=== PATIENT | female | born 1970 | race Hispanic/Latino ===

== ENCOUNTER 2016-10-03 16:58 | Emergency (ER) | payer OTHER ==
[~2016-10-03] VITALS: Ht 162.6 cm; Wt 75.3 kg
[~2016-10-03 16:58] MED LIST: BLM PO; CYCLOBENZAPRINE10 M1 PO; IBUPROFEN800 M1 PO; MEDROL DOSEPAK1 PAC PO; MOBIC15 M1 PO; PERCOCET 325 MG1 TA2 PO; PREDNISONE10 MG PO; TAMIFLU 75MG75 MG PO; TESSALON PERLE100 MG PO; TORADOL10 MG PO; ULTRAM50 M1 PO; ZOFRAN4 M1 SL
--- NOTE | 2016-10-03 17:22 | ED SKIN/ALLERGY COMPLAINT ---
History of Present Illness General Chief Complaint: Allergy Symptoms Stated Complaint: BIBA ALLERGIC REACTION Source: patient, old records, EMS Exam Limitations: no limitations Vital Signs & Intake/Output Vital Signs & Intake/Output Vital Signs Date Time Temp Pulse Resp B/P Pulse O2 O2 Flow FiO2 Ox Delivery Rate 10/03 1849 97.3 87 18 142/71 97 Room Air 10/03 1704 97.9 107 20 185/96 99 Nasal 2.0L Cannula Allergies Coded Allergies: oxycodone (From OXYCONTIN) (Severe, ITCHING 05/20/16) shrimp (Severe, HIVES AND RASHES, SOB 10/03/16) morphine (Intermediate, Hives 12/19/15) Reconcile Medications Epinephrine (Epipen 2-Dipak) 0.3 MG/0.3 ML AUTO.INJCT 1 UBALDO SC ONCE PRN ANAPHYLAXIS Methylprednisolone. (Medrol) 4 MG TAB.DS.PK 1 DP PO AD ALLERGIC REACTION 6 on day 1 then reduce by one tablet daily until gone Triage Nurses Notes Reviewed? yes Onset: Abrupt Duration: hour(s): (1), constant Timing: recent history Severity: moderate Severity Numbers: 7 Location: generalized Possible Factors: shrimp exposure No Modifying Factors: none HPI: 45-year-old female presents to emergency room after developing generalized pruritus rash, and feeling as though her throat was closing after eating shrimp around 4:30 this afternoon. The patient was administered epinephrine Benadryl and Zofran in route. She states her nausea has resolved. She denies any difficulty breathing chest tightness abdominal pain diarrhea. No history of anaphylaxis in the past however she states that she has had reactions to shrimp in the past however that was several years ago. There are no modifying factors or associated symptoms otherwise (JOVITA SINGH) Past History Travel History Traveled to [place] past 21 day No Medical History Any Pertinent Medical History? 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 No (JOVITA SINGH) Review of Systems Review of Systems Constitutional: Reports: see HPI. All Other Systems: Reviewed and Negative Comments Review of systems: See HPI, All other systems negative. Constitutional, no chills no fever, no malaise HEENT:no sore throat no congestion, Cardiovascular: No chest pain , no palpitation , Skin, no rashes, no change in skin Respiratory: No dyspnea no cough no sputum GI: No nausea no vomiting, no diarrhea, no bloating/constipation : No dysuria Muscle skeletal: No joint pain, no joint swelling, no back pain, no neck pain, Neurologic: No numbness no headache Psych: No stress . Heme/endocrine: No bruising no bleeding Immunology: No lymphadenopathy, (JOVITA SINGH) Physical Exam Physical Exam General Appearance: well developed/nourished, no apparent distress, alert, awake , anxious Comments: Well-developed well-nourished person in no acute distress Head/Face: Atraumatic, no maxillary/frontal sinus tenderness, no facial swelling Eyes: PERRL, EOMI, no conjunctival injection Ear:External auditory canals clear Nose: atraumatic.Normal inspection Throat: Moist mucous membranes.Pharynx normal. No pharyngeal erythema/exudate seen. No stridor/drooling or assymetry. No swelling or edema. Neck: Supple, no lymphadenopathy, FROM Back: Nontender, no CVA tenderness. Full range of motion Cardiovascular: Regular rate and rhythms no murmurs Respiratory: No respiratory distress. Patient speaking in full complete sentences. Breath sounds clear to auscultation bilaterally: NO W/R/R Abdomen: Soft, nontender nondistended Extremity: No edema, full range of motion of extremities, normal and equal pulses bilaterally, 5 out of 5 strength noted to bilateral upper and lower extremities Neuro: Alert oriented x3, motor sensory normal, cranial nerves II through XII grossly intact. There were no obvious focal neurologic abnormalities. Skin: No appreciable rash on exposed skin, skin is warm and dry. Psych: Mood and affect is normal, memory and judgment is normal. (JOVITA SINGH) Progress Differential Diagnosis: abscess/cellulitis, allergic reaction, anaphylaxis, angioedema, contact dermatitis, drug reaction Plan of Care: Orders Procedure Date/time Status EKG 10/03 1708 Active EKG ordered old records reviewed patient medicated with Solu-Medrol 125 IV. She was R medicated with Benadryl epinephrine in route 10/03/2016 5:47:58 PM patient now complaining of a pruritic rash to her back and face noted with hives to the back. Benadryl 50 mg IV ordered we'll continue to monitor lungs are clear to auscultation. The patient's throat is atraumatic, there is no swelling no trismus no stridor 10/03/2016 6:10:08 PM patient reports pruritus has resolved feeling improved we will continue to monitor 10/03/2016 7:07:48 PM discussed the patient repeat evaluation she states she is feeling improved and does not want be here anymore she denies pruritus denies difficulty breathing or swallowing. Patient is normal sinus on the monitor she denies chest pain or shortness of breath's cussed with her need for close follow -up with her primary care area and Medrol Dosepak prescription and EpiPen prescription were provided and discussed with her the signs and symptoms of anaphylaxis and went to use the EpiPen versus when not to she feels comfortable this plan cleared for discharge (JOVITA SINGH) Initial ED EKG: normal intervals, normal p-waves, normal QRS complex, normal sinus rhythm (80) (JOVITA SINGH) Departure Departure Time of Disposition: 1852 Disposition: HOME OR SELF CARE Condition: Stable Clinical Impression Primary Impression: Allergic reaction Referrals: BORA PEÑA (PCP/Family) Additional Instructions: Medrol Dosepak as directed and this prescription tomorrow. Epi-pens as discussed. Follow up with your primary care physician this week return immediately with any concerns Departure Forms: Customer Survey General Discharge Information Prescriptions: Current Visit Scripts Methylprednisolone. (Medrol) 1 DP PO AD #1 DP 6 on day 1 then reduce by one tablet daily until gone Epinephrine (Epipen 2-Dipak) 1 UBALDO SC ONCE PRN ANAPHYLAXIS #1 PAC (JOVITA SINGH) PA/TELETYPE TELEGRAPHER Co-Sign Statement Statement: ED Attending supervision documentation- [] I saw and evaluated the patient. I have also reviewed all the pertinent lab results and diagnostic results. I agree with the findings and the plan of care as documented in the PA's/TELETYPE TELEGRAPHER's documentation. x I have reviewed the ED Record and agree with the PA's/TELETYPE TELEGRAPHER's documentation. [] Additions or exceptions (if any) to the PAs/TELETYPE TELEGRAPHER's note and plan are summarized below: [] (SAIRA NGUYỄN,TRAE)
[2016-10-03 18:49] VITALS: BP 142/71
[2016-10-03] MEDS ORDERED: MEDROL4 M2 PO (18:55)
[2016-10-03] MEDS ORDERED: EPIPEN 2-P0.3 MG/0.3 SC (18:55)
== END 2016-10-03 19:04 ==
LOC: ERH 16:58
DX: L27.2 Dermatitis due to ingested food (principal); J39.2 Other diseases of pharynx
CPT/HCPCS: 93005; 93010; 96374; 96375; J1200; J2930

== ENCOUNTER 2016-12-01 08:20 | Emergency (ER) | payer OTHER ==
[~2016-12-01] VITALS: Ht 162.6 cm; Wt 75.8 kg
[~2016-12-01 08:20] MED LIST changes: +EPIPEN 2-P0.3 MG/0.3 SC; +MEDROL4 M2 PO
[2016-12-01 08:23] VITALS: BP 153/89
--- NOTE | 2016-12-01 08:29 | ED NECK/BACK PAIN COMPLAINT ---
History of Present Illness General Chief Complaint: Low Back Pain/Injury Stated Complaint: BACK PAIN Source: patient Exam Limitations: no limitations Vital Signs & Intake/Output Vital Signs & Intake/Output Vital Signs Date Time Temp Pulse Resp B/P Pulse O2 O2 Flow FiO2 Ox Delivery Rate 12/01 0823 97.9 81 16 153/89 96 Room Air Allergies Coded Allergies: oxycodone (From OXYCONTIN) (Severe, ITCHING 05/20/16) shrimp (Severe, HIVES AND RASHES, SOB 10/03/16) morphine (Intermediate, Hives 12/19/15) Triage Note: PT STATES SHE IS HAVING SCIATIC PAIN RIGHT SIDE THAT RADIATES INTO HER GROIN DOWN HER LEG FOR THE PAST 3 DAYS. Triage Nurses Notes Reviewed? yes : No Patient currently breastfeeds: No HPI: This patient is a 45-year-old female with a past medical history including sciatica who presented to the emergency department today for evaluation of right lower back pain. The patient reported that 3 days ago she thinks she started to have a flare of her sciatica. Her pain always starts in her right lower back, moved into her right groin, and down the anterior portion of her right thigh. The pain does not radiate to her foot. At its worst, the pain gets up to a 10 out of 10, sharp and burning. The patient reported that she does take 800 ibuprofen which helps with the pain. The patient reported a certain movements make the pain worse. She denied any bowel or bladder incontinence. No saddle paresthesia. She denied any numbness or tingling her extremities, urinary burning, urgency, frequency, or blood in the urine. No abdominal pain, nausea, vomiting, or any other associated symptoms. She denied any recent trauma or falls. (CHELY PÉREZ,BETTE) Reconcile Medications Methylprednisolone. (Medrol) 4 MG TAB.DS.PK 1 DP PO AD BACK PAIN 6 on day 1 then reduce by one tablet daily until gone Naproxen (Naprosyn) 500 MG TABLET 1 TAB PO BID PRN PAIN AND INFLAMMATION (SAIRA NGUYỄN,TRAE) Past History Travel History Traveled to [place] past 21 day No Medical History Any Pertinent Medical History? 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 No (BETTE MO PA-C) Review of Systems Review of Systems Constitutional: Reports: no symptoms. Eyes: Reports: no symptoms. Ears, Nose, Throat, Mouth: Reports: no symptoms. Respiratory: Reports: no symptoms. Cardiovascular: Reports: no symptoms. Gastrointestinal/Abdominal: Reports: no symptoms. Musculoskeletal: Reports: see HPI. Skin: Reports: no symptoms. Neurological/Psychological: Reports: no symptoms. All Other Systems: Reviewed and Negative (BETTE MO PA-C) Physical Exam Physical Exam Neck: normal inspection, supple, full range of motion, normal alignment, no midline tenderness Comments: Well-developed well-nourished person in no acute distress HEENT: Normal EENT exam, head normocephalic, moist mucous membranes Back: Normal inspection. No bony or muscular deformities. Negative straight leg raise bilaterally. No midline tenderness. Right-sided lumbar paraspinal musculature tenderness on palpation Cardiovascular: Regular rate and rhythm with no murmurs Respiratory: No respiratory distress. Breath sounds clear to auscultation bilaterally Abdomen: Soft, nontender and nondistended Extremity: No edema, no calf tenderness to palpation, normal and equal pulses. Neuro: Alert oriented x3, cranial nerves II through XII grossly intact. Skin: No appreciable rash on exposed skin, skin is warm and dry. Psych: Mood and affect is normal (BETTE MO PA-C) Progress Differential Diagnosis: cauda equina syn, herniated disc, myofascial strain, pyelo/UTI, sciatica, spinal cord inj, thoracic outlet syn, T/L spine injury, ureterolithiasis Plan of Care: Current Medications Sig/Salvador Start time Last Medication Dose Stop Time Status Admin Ketorolac 60 MG ONCE ONE 12/01 0900 AC Tromethamine 12/01 0901 (Toradol) Departure Departure Disposition: HOME OR SELF CARE Condition: Stable Clinical Impression Primary Impression: Sciatica Qualifiers: Laterality: right Qualified Code: M54.31 - Sciatica, right side Referrals: YUSUF NGUYỄN,BORA CASTELLANOS (PCP/Family) Additional Instructions: Please take medication for pain as directed. Take Medrol Dosepak as directed. Please call to make a follow-up appointment with the orthopedic physician whose information has been provided to you in this packet. Gentle stretching. You may apply ice or heat to the affected area as needed. Avoid any heavy lifting or strenuous activity. Return for any worsening symptoms or concerns. Departure Forms: Customer Survey General Discharge Information Prescriptions: Current Visit Scripts Naproxen (Naprosyn) 1 TAB PO BID PRN PAIN AND INFLAMMATION #20 TAB Methylprednisolone. (Medrol) 1 DP PO AD #1 DP 6 on day 1 then reduce by one tablet daily until gone (CHELY PÉREZ,BETTE) PA/SENIOR SVP Co-Sign Statement Statement: ED Attending supervision documentation- [] I saw and evaluated the patient. I have also reviewed all the pertinent lab results and diagnostic results. I agree with the findings and the plan of care as documented in the PA's/SENIOR SVP's documentation. x I have reviewed the ED Record and agree with the PA's/SENIOR SVP's documentation. [] Additions or exceptions (if any) to the PAs/SENIOR SVP's note and plan are summarized below: [] (SAIRA NGUYỄN,TRAE)
[2016-12-01] MEDS ORDERED: NAPROSYN500 M1 PO (09:02)
[2016-12-01] MEDS ORDERED: MEDROL4 M2 PO (09:02)
== END 2016-12-01 09:10 ==
LOC: ERH 08:20
DX: M54.41 Lumbago with sciatica, right side (principal)
CPT/HCPCS: 96372; J1885